=== PATIENT | male | born 1980 | race Caucasian/White ===

== ENCOUNTER 2016-07-31 23:58 | Emergency (ER) | payer MEDICAID ==
[2016-08-01 00:10] VITALS: RESP 16; TEMP 97.9
--- NOTE | 2016-08-01 00:10 | EDPHY ---
H & P Time Seen by Provider: 08/01/16 00:00 HPI/ROS: HPI The patient presents with concern for alcohol intoxication, he is brought in by ambulance. He was found by a concerned bystander, worried that he was on ketamine and having an overdose. He says he has been drinking alcohol tonight and smoking cigarettes. He denies any complaints. REVIEW OF SYSTEMS Constitutional: No fever, no chills. Eyes: No discharge. ENT: No sore throat. Cardiovascular: No chest pain, no palpitations. Respiratory: No cough, no shortness of breath. Gastrointestinal: No abdominal pain, no vomiting. Genitourinary: No hematuria. Musculoskeletal: No back pain. Skin: No rashes. Neurological: No headache. PMHx: Healthy Soc Hx: Homeless, alcohol use, tobacco use PHYSICAL General Appearance: Alert, no distress Eyes: Pupils equal and round no pallor or injection ENT, Mouth: Mucous membranes moist Respiratory: There are no retractions, lungs are clear to auscultation Cardiovascular: Regular rate and rhythm Gastrointestinal: Abdomen is soft and non-tender, no masses, bowel sounds normal Neurological: A&O, moves all extremities Skin: Warm and dry, no rashes Musculoskeletal: Neck is supple non tender Extremities: symmetrical, full range of motion Psychiatric: Patient is oriented X 3, there is no agitation Source: Patient, EMS Exam Limitations: No limitations Constitutional: Initial Vital Signs Temperature (C) 36.6 C 08/01/16 00:00 Heart Rate 74 08/01/16 00:00 Respiratory Rate 16 08/01/16 00:00 Blood Pressure 148/89 H 08/01/16 00:00 O2 Sat (%) 93 08/01/16 00:00 O2 Delivery Mode Room Air O2 (L/minute) 2 Allergies/Adverse Reactions: Unable to Assess Allergy (Unverified 08/01/16 00:06) Home Medications: Medication Instructions Recorded Miscellaneous Medical Supply [NO 1 ea MIS AD 06/13/12 HOME MEDS] Denies 10/14/12 Medical Decision Making ED Course/Re-evaluation: I met the paramedics at the bedside to obtain their report. The patient was monitored in the ER for several hours. He sobered clinically and was able to walk without difficulty. [facility] with [facility]. Differential Diagnosis: This is a 35-year-old man who presents with alcohol intoxication, there was some concern for ketamine ingestion, however the patient denies. He seems intoxicated. He does not have any external signs of trauma. - Data Points Medications Given: Discontinued Medications Sodium Chloride (Ns) 1,000 mls @ 0 mls/hr IV ONCE ONE PRN Reason: Wide Open Stop: 08/01/16 00:18 Last Admin: 08/01/16 00:18 Dose: 1,000 mls Departure - Departure Disposition: Home, Routine, Self-Care Clinical Impression: Alcoholic intoxication Qualifiers: Complication of substance-induced condition: with delirium Qualified Code(s): F10.121 - Alcohol abuse with intoxication delirium Condition: Good Instructions: Alcohol Intoxication (ED) Referrals: [facility] [Outside] - As per Instructions
[2016-08-01] MEDS ORDERED: ONDANSETRON 4 MG/2 ML VIAL ONE (00:12)
[2016-08-01] MEDS ORDERED: NS 1,000 ML IV ONE (00:17)
[2016-08-01 06:51] VITALS: BP 112/76; PULSE 79; O2SAT 97
== END 2016-08-01 06:49 | disposition home or self-care (01) ==
LOC: EDUNIT#
DX: F10.121 Alcohol abuse with intoxication delirium (principal)
CPT/HCPCS: J2405

== ENCOUNTER 2016-08-04 00:29 | Emergency (ER) | payer MEDICAID ==
[2016-08-04 00:39] VITALS: RESP 18; O2SAT 93
--- NOTE | 2016-08-04 03:56 | EDPHY ---
H & P Stated Complaint: bilat foot pain and sore throat Time Seen by Provider: 08/04/16 00:49 HPI/ROS: Chief Complaint: Foot pain, sore throat HPI: 35-year-old homeless male presenting with bilateral foot pain, sore throat and left great toe pain. Patient states he has has sores from blisters on the backs of his heels for the last 2 days. He is concerned about the infected. Also thinks he has an infection in his toenail of his left great toe. He did tried to trim the nail but is not improved. Has not had any pus or discharge from the wound. Patient also states that a sore throat for several days in her swallowed is able swallow. No fevers or chills. No cough. No chest pain or shortness of breath. No nausea or vomiting. ROS: 10 point Review of Systems is negative except as noted in the HPI. PMH: Denies Medications: Denies Allergies: No known drug allergies Social History: No smoking, daily alcohol, denies other drug use, patient is currently homeless Family History: non-contributory Physical Exam: Gen: Awake, Alert, No Distress HEENT: Nose: no rhinorrhea Eyes: PERRLA, EOMI Mouth: Moist mucosa mild pharyngeal erythema without exudate Neck: Supple, no JVD Chest: nontender, lungs clear to auscultation Heart: S1, S2 normal, no murmur Abd: Soft, non-tender, no guarding Back: no CVA tenderness, no midline tenderness Ext: no edema, he has ruptured blisters on the back up bilateral calcanei without significant erythema. There is no discharge. His left great toe there is an ingrown tail nail on the medial aspect. There is mild erythema. There is no purulent discharge Skin: no rash Neuro: CN II-XII intact, Sensation grossly intact, Strength 5/5 in bilateral upper and lower extremities - Personal History Current Tetanus/Diphtheria Vaccine: Yes Current Tetanus Diphtheria and Acellular Pertussis (TDAP): Yes - Medical/Surgical History Hx Asthma: No Hx Chronic Respiratory Disease: No Hx Diabetes: No Hx Cardiac Disease: No Hx Renal Disease: No Hx Cirrhosis: No Hx Alcoholism: Yes Hx HIV/AIDS: No Hx Splenectomy or Spleen Trauma: No Other PMH: etoh - Social History Smoking Status: Current every day smoker Constitutional: Initial Vital Signs Temperature (C) 36.5 C 08/04/16 00:34 Heart Rate 84 08/04/16 00:34 Respiratory Rate 18 08/04/16 00:34 Blood Pressure 135/84 H 08/04/16 00:34 O2 Sat (%) 93 08/04/16 00:34 O2 Delivery Mode Room Air Allergies/Adverse Reactions: No Known Allergies Allergy (Unverified 08/04/16 00:33) Home Medications: Medication Instructions Recorded NK [No Known Home Meds] 08/04/16 Medical Decision Making Procedures: Procedure: Digital nerve block, indication is digit anesthesia for procedure. Patient was prepped with chlorhexidine Skin prep. 0.5% bupivacaine was infiltrated in the medial in lateral aspects for with a dorsal approach at the base of the proximal phalanx with blockage of both dorsal and volar nerves. Total of 1 mL was infiltrated. There were no complications. Procedure was performed by myself. Procedure: ED toenail dissection Indication ingrown toenail, patient was brought to the digital nerve block. Patient had the medial aspect of his left great toenail incised with the scissor to the nail bed base. This was removed without difficulty. There is no purulent discharge. There is a large portion removed. There was no complications. Performed by myself. ED Course/Re-evaluation: Rapid strep is negative. Patient's ingrown toenail has been incised by me. Dressing has been placed. There is no evidence of cellulitis or infection on his foot blisters. Will he has been getting dressings and discharged to follow up with [facility]. - Data Points Laboratory Results: 08/04/16 08/04/16 Unknown 01:00 Group A Strep Screen NEGATIVE (NEGATIVE) Group A Strep DNA Pending Departure - Departure Disposition: Home, Routine, Self-Care Clinical Impression: Ingrown toenail Condition: Good Instructions: Ingrown Nail (ED) Additional Instructions: Follow up with the [facility] in 3-4 days for re-evaluation. Return to the emergency depart for increasing pain, redness, discharge, fever, chills, or any other concerns. Referrals: NONE *PRIMARY CARE P,. [Primary Care Provider] - As per Instructions [facility],. [Clinic] - As per Instructions
[2016-08-04 05:49] VITALS: BP 121/69; PULSE 73; TEMP 98.1
[2016-08-04] MEDS ORDERED: IBUPROFEN 200 MG TAB PO ONE ×2 (06:33→06:34)
== END 2016-08-04 05:51 | disposition home or self-care (01) ==
PROC: 0HBRXZZ Excision of Toe Nail, External Approach (ICD-10-PCS; principal; 2016-08-04)
DX: L60.0 Ingrowing nail (principal); F17.200 Nicotine dependence, unspecified, uncomplicated

== ENCOUNTER 2016-10-11 16:02 | Emergency (ER) | payer MEDICAID ==
[2016-10-11 16:18] VITALS: TEMP 98.1
--- NOTE | 2016-10-11 16:24 | EDPHY ---
H & P Stated Complaint: Found sleeping under tree in park Time Seen by Provider: 10/11/16 16:06 HPI/ROS: Chief Complaint: Alcohol intoxication, decreased level of consciousness HPI: 35-year-old male who was found sleeping on a park intoxicated. Patient is unable to ambulate on their own. Patient brought in by EMS for further evaluation. No obvious signs of trauma. Remainder of history is unobtainable secondary to the patient's intoxication. ROS: Unobtainable secondary to the patient's intoxication PMH: Unknown Medications: Unknown Allergies: Unknown Social History: Positive for alcohol Family History: non-contributory Physical Exam: Gen: Somnolent, responds to painful stimuli, maintaining airway, smells of alcohol and emesis HEENT: Atraumatic Nose: no epistaxis or deformity Eyes: PERRLA, EOMI Mouth: Moist mucosa Neck: Supple, no step-offs or deformity Chest: Atraumatic, lungs clear to auscultation Heart: S1, S2 normal, no murmur Abd: Soft, non-tender, no guarding Back: Atraumatic Ext: no edema, atraumatic Skin: no rash Neuro: Sensation grossly intact, Strength 5/5 in bilateral upper and lower extremities - Personal History Current Tetanus/Diphtheria Vaccine: Unsure Current Tetanus Diphtheria and Acellular Pertussis (TDAP): Unsure - Medical/Surgical History Hx Asthma: No Hx Chronic Respiratory Disease: No Hx Diabetes: No Hx Cardiac Disease: No Hx Renal Disease: No Hx Cirrhosis: No Hx Alcoholism: Yes Hx HIV/AIDS: No Hx Splenectomy or Spleen Trauma: No Other PMH: etoh - Social History Smoking Status: Current every day smoker Constitutional: Initial Vital Signs Temperature (C) 36.7 C 10/11/16 16:04 Heart Rate 78 10/11/16 16:04 Respiratory Rate 14 10/11/16 16:04 Blood Pressure 121/61 H 10/11/16 16:04 O2 Sat (%) 87 L 10/11/16 16:04 O2 Delivery Mode Room Air O2 (L/minute) 4 Allergies/Adverse Reactions: No Known Allergies Allergy (Unverified 08/04/16 00:33) Home Medications: Medication Instructions Recorded NK [No Known Home Meds] 08/04/16 Medical Decision Making ED Course/Re-evaluation: Patient is now awake and appropriate. Ambulating unassisted to the bathroom. No current complaints. Medically cleared for the [facility] - Data Points Laboratory Results: 10/11/16 16:00 Ethyl Alcohol 298 mg/dL H mg/dL (0-10) Departure - Departure Disposition: Home, Routine, Self-Care Clinical Impression: Alcoholic intoxication Condition: Good Instructions: Alcohol Intoxication (ED), Chlordiazepoxide (By mouth) Additional Instructions: Please seek help to decrease your alcohol consumption. Referrals: [facility],. [Clinic] - As per Instructions
[2016-10-11 16:37] LABS: ETHANOL SERUM 298 mg/dL (0-10)
[2016-10-11 19:41] VITALS: BP 120/54; PULSE 80; RESP 12; O2SAT 93
[2016-10-11] MEDS ORDERED: CHLORDIAZEPOXIDE 25MG PREPK#6 BTL TAKEHOME ONE (20:12)
== END 2016-10-11 20:45 | disposition home or self-care (01) ==
LOC: EDUNIT#
DX: F10.129 Alcohol abuse with intoxication, unspecified (principal); F17.200 Nicotine dependence, unspecified, uncomplicated
CPT/HCPCS: G0480

== ENCOUNTER 2016-12-07 18:52 | Emergency (ER) | payer MEDICAID ==
[2016-12-07] MEDS ORDERED: PROPARACAINE 0.5% 15 ML OPHT DROP OP ONE (19:00)
--- NOTE | 2016-12-07 19:01 | EDPHY ---
H & P Time Seen by Provider: 12/07/16 18:54 HPI/ROS: CHIEF COMPLAINT: Foreign body in right eye HISTORY OF PRESENT ILLNESS: The patient is a 36-year-old homeless male, brought in by EMS, presenting with a foreign body in his right eye and multiple abrasions from a fall. The patient states he was walking along the [place] and fell on some rocks on his right side. The patient went to sleep and when he woke up he felt like there was something in his right eye. The patient complains of severe right eye pain. He has multiple abrasions on his right side and complains of right rib pain. He denies head trauma. No neck or back pain. REVIEW OF SYSTEMS: A comprehensive 10 point review of systems is otherwise negative aside from elements mentioned in the history of present illness. Past Medical/Surgical History: Denies. Social History: Homeless Smoking Status: Current every day smoker Physical Exam: General: Agitated, tearful at times, cooperative at other times Lids: I inverted the lid, no proptosis, no periorbital erythema or swelling, no vesicles, no foreign body Conjunctivae: Erythema, no discharge Pupils: equal round and reactive to light EOMI Cornea: Abrasion at 2 O'clock. Anterior chamber: Clear, no hyphema ENT, Mouth: [no oral trauma, no bony tenderness] Neck: [Nontender, full range of motion without pain] Respiratory: [right-sided chest wall tenderness, lungs clear bilaterally] Cardiovascular: [Regular rate and rhythm] Abdomen: [Abdomen is soft and nontender] Skin: [abrasions on the right lateral chest wall and right thigh] Back: [No midline T/L/S tenderness] Extremities: [Pelvis is stable and nontender; no extremity tenderness or deformity range of motion without pain] Neurological: [A&Ox3, normal motor function, normal sensory exam, cranial nerves intact] Psychiatric: [fluctuating affect] Constitutional: Initial Vital Signs Temperature (C) 36.5 C 12/07/16 18:53 Heart Rate 86 12/07/16 18:53 Respiratory Rate 20 12/07/16 18:53 Blood Pressure 124/79 H 12/07/16 18:53 O2 Sat (%) 96 12/07/16 18:53 O2 Delivery Mode Room Air Allergies/Adverse Reactions: No Known Allergies Allergy (Unverified 08/04/16 00:33) Home Medications: Medication Instructions Recorded NK [No Known Home Meds] 08/04/16 Medical Decision Making - Diagnostics Imaging Results: Imaging Impressions Chest X-Ray 12/07/16 19:00 Impression: No acute pulmonary disease. ED Course/Re-evaluation: The patient arrived via EMS complaining of a foreign body in his right eye. I tried to examine the patient's eye but he refuses to open it due to severe pain. Plan for Proparacaine drops and reevaluation. The patient additionally complained of right rib pain. Patient is refusing a chest x-ray. I was able to perform an eye exam using fluorescein. The patient has a left corneal abrasion at 2 O'clock. I will treat this with Tobramycin. Patient is now agreeable to chest x-ray. Chest x-ray is negative. No evidence of pneumothorax or rib fracture. The patient has no other acute complaints. He was encouraged to follow up at [facility]. Patient is safe to be discharged home. Differential Diagnosis: Differential diagnosis includes though it is not limited to fracture, intracranial hemorrhage, pneumothorax, hemothorax, intra-abdominal hemorrhage. - Data Points Medications Given: Discontinued Medications Acetaminophen (Tylenol) 650 mg PO EDNOW ONE Stop: 12/07/16 19:56 Last Admin: 12/07/16 20:16 Dose: 650 mg Proparacaine HCl (Alcaine 0.5%) 1 drops OP EDNOW ONE Stop: 12/07/16 19:01 Last Admin: 12/07/16 19:17 Dose: 1 drop Tobramycin (Tobrex 0.3% Opht Drops Prepack) 1 btl TAKEHOME EDNOW ONE Stop: 12/07/16 20:14 Last Admin: 12/07/16 20:17 Dose: 1 btl Departure - Departure Disposition: Home, Routine, Self-Care Clinical Impression: Corneal abrasion Qualifiers: Encounter type: initial encounter Laterality: left Qualified Code(s): S05.02XA - Injury of conjunctiva and corneal abrasion without foreign body, left eye, initial encounter Chest wall contusion Qualifiers: Encounter type: initial encounter Laterality: right Qualified Code(s): S20.211A - Contusion of right front wall of thorax, initial encounter Condition: Good Instructions: Corneal Abrasion (ED), Chest Wall Pain (ED) Additional Instructions: Use Tobramycin as directed: Put 2 drops of Tobramycin in in the left eye every 4 hours while awake for the next 5 days. Take Tylenol 650 mg every 4 hours as needed for pain. Followup with [facility] if eye symptoms persist on Thursday. The [facility] has walk-in appointments for the homeless at the following days/locations. No appointment is needed. Thursday 8-10 am @ [facility] 11 AM-1 PM @ [facility] Thursday 8-10:30 AM @ [facility] Thursday 8-10 AM @ [facility] 2-4 PM @ [facility] Thursday 8-10 AM @ [facility] Referrals: [facility],. [Clinic] - As per Instructions Report Scribed for: Naheed Andrea Report Scribed by: Nubia Majano Date of Report: 12/07/16 Time of Report: 19:01 Physician Review and Approval Statement: 12/07/16 19:01 Portions of this note were transcribed by a medical records receptionist. I personally performed the history, physical exam, and medical decision-making; and confirmed the accuracy of the information in the transcribed note.
[2016-12-07 19:03] VITALS: TEMP 97.7
[2016-12-07] MEDS ORDERED: FLUORESCEIN SODIUM 1 MG STRIP OP ONE (19:15)
[2016-12-07] MEDS ORDERED: ACETAMINOPHEN 325 MG TAB PO ONE (19:55)
[2016-12-07] MEDS ORDERED: TOBRAMYCIN 0.3% SOLN PREPACK OPHT.BTL TAKEHOME ONE (20:13)
[2016-12-07 20:35] VITALS: BP 133/77; PULSE 85; RESP 16; O2SAT 95
== END 2016-12-07 20:33 | disposition home or self-care (01) ==
LOC: EDUNIT#
DX: S20.211A Contusion of right front wall of thorax, initial encounter (principal); S05.02XA Injury of conjunctiva and corneal abrasion without foreign body, left eye, initial encounter; F17.200 Nicotine dependence, unspecified, uncomplicated; W18.39XA Other fall on same level, initial encounter; Y99.8 Other external cause status

== ENCOUNTER 2017-01-01 13:35 | Emergency (ER) | payer MEDICAID ==
--- NOTE | 2017-01-01 13:39 | EDPHY ---
H & P Time Seen by Provider: 01/01/17 13:39 HPI/ROS: CHIEF COMPLAINT: Medical clearance HISTORY OF PRESENT ILLNESS: The patient is brought in by police for medical clearance for senior care. The patient has a warrant for his arrest. The patient reportedly ran from police. There was no history of fall or trauma. The patient was noted to have alcohol on his breath. In the emergency department, the patient does not want to provide any additional history. The patient states that he does not want to be touch were examined. The patient does appear articulate and competent. The patient denies any acute complaints. REVIEW OF SYSTEMS: A comprehensive 10 point review of systems is otherwise negative aside from elements mentioned in the history of present illness. Source: Patient Exam Limitations: No limitations - Medical/Surgical History Hx Asthma: No Hx Chronic Respiratory Disease: No Hx Diabetes: No Hx Cardiac Disease: No Hx Renal Disease: No Hx Cirrhosis: No Hx Alcoholism: Yes Hx HIV/AIDS: No Hx Splenectomy or Spleen Trauma: No Other PMH: etoh - Social History Smoking Status: Current every day smoker - Physical Exam Exam: General Appearance: Alert, no distress Eyes: Pupils equal and round no pallor or injection ENT, Mouth: Mucous membranes moist Respiratory: No retractions Neurological: Fluent speech, no gross motor deficits observed Skin: Warm and dry, no rashes Psychiatric: Patient is oriented X 3, there is no agitation Allergies/Adverse Reactions: No Known Allergies Allergy (Verified 01/01/17 13:39) Home Medications: Medication Instructions Recorded NK [No Known Home Meds] 08/04/16 Unobtainable 12/20/16 Medical Decision Making ED Course/Re-evaluation: The patient presents to the ED for medical clearance. The patient is refusing to be examined physically. The patient's vital signs are stable. He has no obvious trauma noted on exam. The patient appears to be a competent decision maker. The patient has been deemed competent to refuse a physical exam. The patient will be released to the custody of police. Departure - Departure Disposition: Home, Routine, Self-Care Clinical Impression: Medical clearance for incarceration Condition: Good Instructions: Alcohol Intoxication (ED) Referrals: NONE *PRIMARY CARE P,. [Primary Care Provider] - As per Instructions
[2017-01-01 13:41] VITALS: BP 115/53; PULSE 105; TEMP 97.9; O2SAT 94
== END 2017-01-01 13:50 | disposition home or self-care (01) ==
LOC: EDUNIT#
DX: Z02.89 Encounter for other administrative examinations (principal); F17.200 Nicotine dependence, unspecified, uncomplicated

== ENCOUNTER 2017-04-08 16:17 | Emergency (ER) | payer MEDICAID ==
[2017-04-08 21:00] VITALS: PULSE 77; RESP 16
[2017-04-08] MEDS ORDERED: CHLORDIAZEPOXIDE 25MG PREPK#6 BTL TAKEHOME ONE ×2 (22:56→22:59)
--- NOTE | 2017-04-08 22:58 | EDPHY ---
H & P Stated Complaint: ETOH - Personal History Current Tetanus/Diphtheria Vaccine: Unsure - Medical/Surgical History Hx Asthma: No Hx Chronic Respiratory Disease: No Hx Diabetes: No Hx Cardiac Disease: No Hx Renal Disease: No Hx Cirrhosis: No Hx Alcoholism: Yes Hx HIV/AIDS: No Hx Splenectomy or Spleen Trauma: No Other PMH: etoh - Social History Smoking Status: Current every day smoker HPI/ROS: Chief complaint: Alcohol intoxication History of present illness: This is a 36-year-old male brought to the emergency department by EMS and police for evaluation of alcohol intoxication. Apparently he was found outside a grocery store drinking alcohol. He was too drunk to go to the [facility] and was brought here on an [facility] cold. On my evaluation he appears intoxicated with a strong odor of alcohol. Not answering questions. Review of systems: Unable to obtain secondary to level of consciousness (Chacho Ni) - Physical Exam Exam: General Appearance: Alert to verbal stimuli Eyes: PERRLA Respiratory: Lungs clear to auscultation bilaterally Cardiac: Regular rate and rhythm. Gastrointestinal: Soft, nondistended. Bowel sounds normal. Neurological: Alert to verbal stimuli. Moving all extremities. Skin: A head-to-toe exam does not reveal acute lesions. Musculoskeletal: Head is without crepitus or bony deformity, spine is without crepitus or bony deformity, chest without crepitus or subcutaneous air, purposeful moving all extremities. (Chacho Ni) Constitutional: Initial Vital Signs Temperature (C) 36.3 C 04/08/17 16:29 Heart Rate 78 04/08/17 16:29 Respiratory Rate 18 04/08/17 16:29 Blood Pressure 131/78 H 04/08/17 16:29 O2 Sat (%) 96 04/08/17 16:29 O2 Delivery Mode Room Air Allergies/Adverse Reactions: No Known Allergies Allergy (Verified 04/08/17 16:34) Home Medications: Medication Instructions Recorded NK [No Known Home Meds] 08/04/16 Unobtainable 12/20/16 Medical Decision Making ED Course/Re-evaluation: Patient seen under the supervision of my secondary supervising physician Dr. Lianet Jean Baptiste. Patient is brought to the emergency department on an [facility] hold. Strong odor of alcohol on his breath. He has been observed for almost 7 hr. He is sobering up well. Awake alert and answering questions. Admits to drinking alcohol. Has no acute complaints. Would like to seek care, would like to go to the [facility]. He is sent to the [facility] with police and a Librium prepack. (Chacho Ni) Differential Diagnosis: Included but not limited to alcohol intoxication, alcohol withdrawal, polysubstance abuse (Chacho Ni) Other Provider: The patient was evaluated and managed by the Physician [employer]. I discussed the patient's presentation and course with the physician visitor services assistant and agree with the evaluation. My co-signature indicates that I have reviewed this chart and I agree with the findings and plan of care as documented. I am the secondary supervising physician. (Lianet Jean Baptiste) - Data Points Medications Given: Discontinued Medications Chlordiazepoxide (Librium 25 Mg Prepack#6) 1 btl TAKEHOME EDNOW ONE Stop: 04/08/17 23:00 Last Admin: 04/08/17 23:01 Dose: 1 btl Departure - Departure Disposition: Law Enforcement/Court/Senior Living Clinical Impression: Alcoholic intoxication Condition: Good Instructions: Chlordiazepoxide/Clidinium (By mouth), Abuse of Alcohol (ED) Additional Instructions: Follow-up with a primary doctor for recheck Drink plenty of fluids to stay hydrated Avoid alcohol If symptoms worsen or new symptoms develop return to the emergency room for recheck Referrals: NONE *PRIMARY CARE P,. [Primary Care Provider] - As per Instructions [facility],. [Clinic] - As per Instructions
[2017-04-08 23:19] VITALS: BP 129/89; TEMP 98.2; O2SAT 97
== END 2017-04-08 23:16 ==
LOC: EDUNIT#
DX: F10.129 Alcohol abuse with intoxication, unspecified (principal); F17.200 Nicotine dependence, unspecified, uncomplicated

== ENCOUNTER 2017-04-12 01:46 | Emergency (ER) | payer MEDICAID ==
--- NOTE | 2017-04-12 02:12 | EDPHY ---
H & P Stated Complaint: ETOH, FOUND IN [address] OF [facility] ON [facility] [address] Time Seen by Provider: 04/12/17 01:51 HPI/ROS: Chief Complaint: Alcohol intoxication HPI: 36-year-old male who was found laying in a doorway intoxicated. Patient passed out after drinking. EMS was called. Is unable to ambulate on their own. Patient brought in by EMS for further evaluation. No obvious signs of trauma per EMS. Remainder of history is unobtainable secondary to the patient' s intoxication. Patient is now awake Alert. ROS: 10 point Review of Systems is negative except as noted in the HPI. Social History: Homeless, heavy daily alcohol Family History: non-contributory Physical Exam: Gen: S awake, alert, slurred speech, smells of alcohol HEENT: Atraumatic Nose: no epistaxis or deformity Eyes: PERRLA, EOMI Mouth: Moist mucosa Neck: Supple, no step-offs or deformity Chest: Atraumatic, lungs clear to auscultation Heart: S1, S2 normal, no murmur Abd: Soft, non-tender, no guarding Back: Atraumatic Ext: no edema, atraumatic Skin: no rash Neuro: Sensation grossly intact, Strength 5/5 in bilateral upper and lower extremities - Personal History Current Tetanus/Diphtheria Vaccine: Unsure - Medical/Surgical History Hx Asthma: No Hx Chronic Respiratory Disease: No Hx Diabetes: No Hx Cardiac Disease: No Hx Renal Disease: No Hx Cirrhosis: No Hx Alcoholism: Yes Hx HIV/AIDS: No Hx Splenectomy or Spleen Trauma: No Other PMH: etoh - Social History Smoking Status: Current every day smoker Constitutional: Initial Vital Signs Temperature (C) 36.8 C 04/12/17 01:46 Heart Rate 88 04/12/17 01:46 Respiratory Rate 18 04/12/17 01:46 Blood Pressure 118/86 H 04/12/17 01:46 O2 Sat (%) 97 04/12/17 01:46 O2 Delivery Mode Room Air Allergies/Adverse Reactions: No Known Allergies Allergy (Verified 04/08/17 16:34) Home Medications: Medication Instructions Recorded NK [No Known Home Meds] 08/04/16 Unobtainable 12/20/16 Departure - Departure Disposition: Home, Routine, Self-Care Clinical Impression: Alcoholic intoxication Condition: Good Instructions: Alcohol Intoxication (ED) Referrals: [facility],. [Clinic] - As per Instructions
[2017-04-12 02:23] VITALS: BP 121/74; PULSE 84; RESP 16; TEMP 97.9; O2SAT 96
[2017-04-12] MEDS ORDERED: CHLORDIAZEPOXIDE 25MG PREPK#6 BTL TAKEHOME ONE (02:27)
== END 2017-04-12 02:22 | disposition home or self-care (01) ==
LOC: EDUNIT#
DX: F10.129 Alcohol abuse with intoxication, unspecified (principal); F17.200 Nicotine dependence, unspecified, uncomplicated

== ENCOUNTER 2017-05-28 14:13 | Emergency (ER) | payer MEDICAID ==
[2017-05-28 14:16] VITALS: BP 137/88; PULSE 96; RESP 18; TEMP 98.2; O2SAT 98
--- NOTE | 2017-05-28 14:22 | EDPHY ---
H & P Stated Complaint: ETOH dropped off by PD Time Seen by Provider: 05/28/17 14:21 HPI/ROS: HPI: This is a 36-year-old male who presents with Chief Complaint: Alcohol intoxication Location:body Quality: Alcohol intoxication Duration: Today Signs and Symptoms: No suicidal ideation, no homicidal ideation, no hallucinations, no chest pain, no shortness of breath, no abdominal pain, no nausea, no vomiting Timing: Acute on chronic Severity: Moderate Context: Patient has a history of alcoholism well-known to the emergency room is brought in by police as a received several calls today for patient being intoxicated in front of business's near [address] [place] [address]. Upon arrival, patient became verbally and physically combative with police. He reported that he did not want to leave the vicinity. He will not be cooperative with exam to me. She will not answer how much alcohol he has drank today or what type of alcohol he has drank. He demands "some food." Modifying Factors: None Comment: ROS: Limited due to intoxication MEDICAL/SURGICAL/SOCIAL HISTORY: Medical history: Daily alcohol abuse. Surgical history: Denies Social history: Tobacco user. Homeless. CONSTITUTIONAL: Intoxicated, uncooperative, smells heavily of alcohol adult male, awake and alert, no obvious distress HEENT: Atraumatic and normocephalic, PERRL, EOMI. Tympanic membranes clear. Oropharynx clear, no exudate and moist pink mucosa. Airway patent. No lymphadenopathy. No meningismus. Cardiovascular: Normal S1/S2, regular rate, regular rhythm, without murmur rub or gallop. PULMONARY/CHEST: Symmetrical and nontender. Clear to auscultation bilaterally. Good air movement. No accessory muscle usage. ABDOMEN: Soft, nondistended, nontender, no rebound, no guarding, no peritoneal signs, no masses or organomegaly. No CVAT. EXTREMITIES: 2/2 pulses, strength 5/5, no deformities, no clubbing, no cyanosis or edema. NEUROLOGICAL: no focal neuro deficits. GCS 15. SKIN: Warm and dry, no erythema. no rash. Good capillary refill. Source: Patient, Police, RN/MD Exam Limitations: Intoxication - Personal History Current Tetanus/Diphtheria Vaccine: No Current Tetanus Diphtheria and Acellular Pertussis (TDAP): No - Medical/Surgical History Hx Asthma: No Hx Chronic Respiratory Disease: No Hx Diabetes: No Hx Cardiac Disease: No Hx Renal Disease: No Hx Cirrhosis: No Hx Alcoholism: Yes Hx HIV/AIDS: No Hx Splenectomy or Spleen Trauma: No Other PMH: etoh - Social History Smoking Status: Current every day smoker Constitutional: Initial Vital Signs Temperature (C) 36.8 C 05/28/17 14:14 Heart Rate 96 05/28/17 14:14 Respiratory Rate 18 05/28/17 14:14 Blood Pressure 137/88 H 05/28/17 14:14 O2 Sat (%) 98 05/28/17 14:14 O2 Delivery Mode Room Air Allergies/Adverse Reactions: No Known Allergies Allergy (Verified 04/08/17 16:34) Home Medications: Medication Instructions Recorded NK [No Known Home Meds] 08/04/16 Medical Decision Making ED Course/Re-evaluation: 1400: Does not meet M1 hold or detainer criteria. Patient is clearly intoxicated and uncooperative, IM Ativan 2 mg ordered. 1452: Reassessed patient. Able to get up out of the ER stretcher on his own and ambulate to the bathroom without any ataxia. Patient does not want to go to the [facility] for detox as he is not interested in alcohol cessation. Patient was discharged. This patient was seen under the supervision of my secondary supervising physician. I evaluated care for this patient independently. Differential Diagnosis: Differential diagnosis includes but is not limited to alcohol intoxication. Departure - Departure Disposition: Home, Routine, Self-Care Clinical Impression: Alcohol intoxication Qualifiers: Complication of substance-induced condition: uncomplicated Qualified Code(s): F10.920 - Alcohol use, unspecified with intoxication, uncomplicated Condition: Good Instructions: Alcohol Intoxication (ED) Additional Instructions: Please refrain from drinking alcohol excessively. Referrals: [facility],. [Clinic] - As per Instructions
[2017-05-28] MEDS ORDERED: LORazepam 2 MG/ML INJ IM ONE (14:34)
== END 2017-05-28 15:16 | disposition home or self-care (01) ==
LOC: EEVIPCON 14:13
DX: F10.920 Alcohol use, unspecified with intoxication, uncomplicated (principal); F17.200 Nicotine dependence, unspecified, uncomplicated
CPT/HCPCS: J2060

== ENCOUNTER 2017-06-24 01:07 | Emergency (ER) | payer MEDICAID ==
[2017-06-24 01:29] VITALS: RESP 18; TEMP 97.5
--- NOTE | 2017-06-24 05:58 | EDPHY ---
H & P Stated Complaint: etoh Time Seen by Provider: 06/24/17 02:58 HPI/ROS: CHIEF COMPLAINT: Alcohol intoxication HISTORY OF PRESENT ILLNESS: Patient was found by bystanders to be severely intoxicated and therefore they called EMS system. Patient denies any injuries , denies loss of consciousness, denies any recent trauma. Patient denies coingestion, patient denies suicidal or homicidal behavior. REVIEW OF SYSTEMS: Constitutional: No fever, no chills. Eyes:No visual changes. ENT: No sore throat. Respiratory: No cough, no shortness of breath. Cardiac: No chest pain. Gastrointestinal: No abdominal pain, vomiting or diarrhea. Genitourinary: No hematuria. Musculoskeletal: No back pain. Skin: No rashes. Neurological: No headache. PAST MEDICAL HISTORY: None PAST SURGICAL HISTORY: None SOCIAL HISTORY: Student, single, denies tobacco or drug use, drinks alcohol occasionally PHYSICAL EXAM: General Appearance: Alert, well hydrated, appropriate, and non-toxic appearing. Head: Atraumatic without scalp tenderness or obvious injury Eyes: Pupils equal, round, reactive to light, no injection. Ears: Clear bilaterally, no perforation, normal landmarks Nose: Atraumatic, no rhinorrhea, clear. Throat: mucus membranes moist. Neck: Supple, non-tender, no lymphadenopathy. Respiratory: No retractions, no distress, no wheezes, and no accessory muscle use. Lungs are clear to auscultation bilaterally. Cardiovascular: Regular rate and rhythm, no murmurs, rubs, or gallops. Gastrointestinal: Abdomen is soft, non-tender, non-distended Musculoskeletal: Normal active ROM of all extremities, atraumatic. Neurological: Alert, appropriate, and interactive. Moves all extremities equally. Skin: No rashes, good turgor, no nodules on palpation. MEDICAL DECISION MAKING: I serially examined this patient since the patient's arrival here in the emergency department. The patient continues to become more and more sober with each examination. I serially questioned the patient and the patient's story given initially has not changed. The patient still denies any trauma, any head injury, and any illicit drug use. At this point, the patient is walking the department freely and is clinically sober. We're discharging the patient to home in stable condition. Source: Patient, EMS Exam Limitations: Intoxication - Personal History Current Tetanus/Diphtheria Vaccine: Yes Current Tetanus Diphtheria and Acellular Pertussis (TDAP): Yes - Medical/Surgical History Hx Asthma: No Hx Chronic Respiratory Disease: No Hx Diabetes: No Hx Cardiac Disease: No Hx Renal Disease: No Hx Cirrhosis: No Hx Alcoholism: Yes Hx HIV/AIDS: No Hx Splenectomy or Spleen Trauma: No Other PMH: unobtainable - Social History Smoking Status: Current every day smoker Constitutional: Initial Vital Signs Temperature (C) 36.4 C 06/24/17 01:10 Heart Rate 88 06/24/17 01:10 Respiratory Rate 18 06/24/17 01:10 Blood Pressure 124/95 H 06/24/17 01:10 O2 Sat (%) 93 06/24/17 01:10 O2 Delivery Mode Room Air Allergies/Adverse Reactions: No Known Allergies Allergy (Verified 04/08/17 16:34) Home Medications: Medication Instructions Recorded NK [No Known Home Meds] 08/04/16 Departure - Departure Disposition: Home, Routine, Self-Care Clinical Impression: Alcoholic intoxication Qualifiers: Complication of substance-induced condition: with delirium Qualified Code(s): F10.921 - Alcohol use, unspecified with intoxication delirium Condition: Good Instructions: Alcohol Intoxication (ED) Additional Instructions: Please return to the emergency department if your worse in any way. Referrals: [facility],. [Clinic] - As per Instructions
[2017-06-24 06:16] VITALS: BP 120/80; PULSE 79; O2SAT 97
== END 2017-06-24 06:16 | disposition home or self-care (01) ==
DX: F10.921 Alcohol use, unspecified with intoxication delirium (principal); F17.200 Nicotine dependence, unspecified, uncomplicated

== ENCOUNTER 2017-06-26 12:42 | Emergency (ER) | payer MEDICAID ==
--- NOTE | 2017-06-26 12:47 | EDPHY ---
H & P Time Seen by Provider: 06/26/17 12:44 HPI/ROS: CHIEF COMPLAINT: "Let me go to sleep asshole" HISTORY OF PRESENT ILLNESS: 36-year-old homeless male history of alcohol abuse, polysubstance abuse, arrives via ambulance after he was found sleeping in a parking garage. He was dry. Currently snowing outside. He is upset that he was brought to the emergency department, states that he is upset that he was woken up. He has no complaints of pain or discomfort effort. No chest pain. No abdominal pain. No trauma no fall. REVIEW OF SYSTEMS: A ten point review of systems was performed and is negative with the exception of the items mentioned in the HPI PAST MEDICAL & SURGICAL HISTORY: No pertinent medical or surgical history SOCIAL HISTORY: History of alcohol abuse. Homelessness. PHYSICAL EXAM (Prior to examination, patient consented to physical exam, hands were washed and my usual and customary physical exam procedures followed) 1) GENERAL: Sleeping, easily woken, Poorly kept, foul smelling. Yelling, cursing, insulting staff and myself. Clothing is dry 2) HEAD: Normocephalic, atraumatic 3) HEENT: Pupils equal, round, reactive to light bilaterally. Sclera anicteric. 4) NECK: Full range of motion, no meningeal signs. 5) LUNGS: Clear auscultation bilaterally, no wheezes, no rhonchi, no retractions. 6) HEART: Regular rate and rhythm, no murmur, no heave, no gallop. 7) ABDOMEN: No guarding, no rebound, no focal tenderness, 8) MUSCULOSKELETAL: Moving all extremities, no focal areas of tenderness, no obvious trauma. No peripheral edema or discoloration. Specifically no evidence of trench foot bilaterally. No evidence of frostbite or akbar nip to his feet. 9) BACK: No obvious trauma, no visual or palpable abnormality. 10) SKIN: No rash, no petechiae. 11) Psychiatric: Patient is oriented X 3, he is agitated DIFFERENTIAL DIAGNOSIS: In no particular order including but limited to malingering, acute alcohol abuse, polysubstance abuse - Medical/Surgical History Hx Asthma: No Hx Chronic Respiratory Disease: No Hx Diabetes: No Hx Cardiac Disease: No Hx Renal Disease: No Hx Cirrhosis: No Hx Alcoholism: Yes Hx HIV/AIDS: No Hx Splenectomy or Spleen Trauma: No Other PMH: unobtainable - Social History Smoking Status: Current every day smoker Constitutional: Initial Vital Signs Temperature (C) 36.4 C 06/26/17 12:44 Heart Rate 79 06/26/17 12:44 Respiratory Rate 18 06/26/17 12:44 Blood Pressure 132/68 H 06/26/17 12:44 O2 Sat (%) 96 06/26/17 12:44 O2 Delivery Mode Room Air Allergies/Adverse Reactions: No Known Allergies Allergy (Verified 04/08/17 16:34) Home Medications: Medication Instructions Recorded NK [No Known Home Meds] 08/04/16 Medical Decision Making ED Course/Re-evaluation: 12:50 p.m.: Patient is clinically sober. He does not [facility] to [facility] to [facility]. He would like to sleep in the ER for few more hours until it stops snowing. I empathized with his living situation. He has no signs of trauma. I do not think that diagnostic studies or imaging are indicated. He is verbally abusive to emergency department staff and myself. He is requesting we provide him with a flashlight . Plan will be discharge from the emergency department. Care of patient under supervision of secondary supervising physician Dr Cornejo. Departure - Departure Disposition: Home, Routine, Self-Care Clinical Impression: Alcohol abuse, Homeless Condition: Good Instructions: Abuse of Alcohol (ED) Additional Instructions: Please consider long-term alcohol sobriety. Do not use drugs Referrals: [facility],. [Clinic] - 1 day without fail
[2017-06-26 12:51] VITALS: BP 132/68
== END 2017-06-26 13:15 | disposition home or self-care (01) ==
DX: F10.129 Alcohol abuse with intoxication, unspecified (principal); F17.200 Nicotine dependence, unspecified, uncomplicated; Z59.0 Homelessness

== ENCOUNTER 2017-07-14 14:47 | Emergency (ER) | payer MEDICAID ==
[2017-07-14] MEDS ORDERED: NS 1,000 ML IV ONE (14:51)
--- NOTE | 2017-07-14 14:56 | EDPHY ---
H & P Source: Patient, EMS Exam Limitations: Intoxication - Medical/Surgical History Hx Asthma: No Hx Chronic Respiratory Disease: No Hx Diabetes: No Hx Cardiac Disease: No Hx Renal Disease: No Hx Cirrhosis: No Hx Alcoholism: Yes Hx HIV/AIDS: No Hx Splenectomy or Spleen Trauma: No Other PMH: unobtainable - Family History Significant Family History: No pertinent family hx - Social History Smoking Status: Current every day smoker Alcohol Use: Heavy Time Seen by Provider: 07/14/17 14:50 HPI/ROS: CHIEF COMPLAINT: Toxication HISTORY OF PRESENT ILLNESS: The patient is a homeless alcoholic man who was found in the bathroom at the [employer] presumably intoxicated. He was surrounded by empty bottles of [employer] pure almond extract. The patient is not cooperative with exam. Any questions asked he responds "leave me the fuck alone". No signs of injury. REVIEW OF SYSTEMS: Unable to obtain secondary to condition EXAM: GENERAL: Combative, disheveled, no acute distress HEAD: Atraumatic, normocephalic. EYES: Pupils equal round and reactive to light, extraocular movements intact, sclera anicteric, conjunctiva are normal. ENT: oropharynx clear without exudates. Moist mucous membranes. NECK: Normal range of motion. LUNGS: Breath sounds clear to auscultation bilaterally and equal. No wheezes rales or rhonchi. HEART: Regular rate and rhythm without murmurs, rubs or gallops. ABDOMEN: Soft, nontender, normoactive bowel sounds. No guarding, no rebound. No masses appreciated. BACK: No CVA tenderness, no spinal tenderness, step-offs or deformities EXTREMITIES: Normal range of motion, no pitting or edema. No clubbing or cyanosis. Mild edema lower legs NEUROLOGICAL: Cranial nerves II through XII grossly intact. slurred speech, normal gait. 5/5 strength, normal movement in all extremities, normal sensation PSYCH: Normal mood, normal affect. SKIN: Warm, dry, normal turgor, no visible rashes or lesions. (Armond Powell) Constitutional: Initial Vital Signs Temperature (C) 36.4 C 07/14/17 14:47 Heart Rate 92 07/14/17 14:47 Respiratory Rate 16 07/14/17 14:47 Blood Pressure 138/78 H 07/14/17 14:47 O2 Sat (%) 98 07/14/17 14:47 O2 Delivery Mode Room Air Allergies/Adverse Reactions: No Known Allergies Allergy (Verified 04/08/17 16:34) Home Medications: Medication Instructions Recorded NK [No Known Home Meds] 08/04/16 Medical Decision Making ED Course/Re-evaluation: I spoke with poison control his case number is [id number]. They recommend only typical treatment for alcohol intoxication. 3:00 p.m. Care transferred to Dr. Lianet Jean Baptiste. (Armond Powell) Differential Diagnosis: Partial list of the Differential diagnosis considered include but were not limited to; intoxication, polysubstance abuse and although unlikely based on the history and physical exam, I also considered head injury, infection. ( Armond Powell) Other Provider: I assumed care of this patient at 3:[address] Armond Powell, pending sober re-evaluation. Patient sobered appropriately. He began to become verbally aggressive to other individuals in the emergency department. I re-examination he is ambulatory without difficulty, has a grossly nonfocal neurologic exam, moving all extremities x4, alert, oriented, no nystagmus. He was cleared to go to group home. ( Lianet Jean Baptiste) - Data Points Laboratory Results: Laboratory Results 07/14/17 15:12 07/14/17 15:12 Medications Given: Discontinued Medications Sodium Chloride (Ns) 1,000 mls @ 0 mls/hr IV EDNOW ONE; Wide Open PRN Reason: Protocol Stop: 07/14/17 14:52 Last Admin: 07/14/17 15:22 Dose: 1,000 mls Departure - Departure Disposition: Home, Routine, Self-Care Clinical Impression: Alcoholic intoxication Qualifiers: Complication of substance-induced condition: uncomplicated Qualified Code(s): F10.920 - Alcohol use, unspecified with intoxication, uncomplicated Condition: Fair Instructions: Alcohol Intoxication (ED), Abuse of Alcohol (ED) Additional Instructions: Stop drinking alcohol in excessive quantities. Referrals: Patient,NotPresent [Unknown] - As per Instructions
[2017-07-14 15:21] LABS: PLATELET COUNT 276 10^3/uL (150-400)
[2017-07-14 18:06] VITALS: BP 134/73
== END 2017-07-14 18:10 | disposition home or self-care (01) ==
LOC: EDUNIT#
DX: F10.920 Alcohol use, unspecified with intoxication, uncomplicated (principal); E86.9 Volume depletion, unspecified; F17.200 Nicotine dependence, unspecified, uncomplicated
CPT/HCPCS: G0480

== ENCOUNTER 2017-11-07 | Emergency (ER) | payer MEDICAID, OTHER | END 2017-11-07 14:03 | disposition home or self-care (01) | DX: F15.129 Other stimulant abuse with intoxication, unspecified (principal) ==

== ENCOUNTER 2017-12-26 08:39 | Emergency (ER) | payer MEDICAID, OTHER ==
--- NOTE | 2017-12-26 08:41 | EDPHY ---
H & P Time Seen by Provider: 12/26/17 08:38 - Medical/Surgical History Hx Asthma: No Hx Chronic Respiratory Disease: No Hx Diabetes: No Hx Cardiac Disease: No Hx Renal Disease: No Hx Cirrhosis: No Hx Alcoholism: Yes Hx HIV/AIDS: No Hx Splenectomy or Spleen Trauma: No Other PMH: Meth & bath salt use - Social History Smoking Status: Current every day smoker Constitutional: Initial Vital Signs Temperature (C) 36.5 C 12/26/17 08:39 Heart Rate 76 12/26/17 08:39 Respiratory Rate 16 12/26/17 08:39 Blood Pressure 137/82 H 12/26/17 08:39 O2 Sat (%) 96 12/26/17 08:39 O2 Delivery Mode Room Air Allergies/Adverse Reactions: No Known Allergies Allergy (Verified 10/09/17 05:36) Home Medications: Medication Instructions Recorded NK [No Known Home Meds] 08/04/16 Medical Decision Making ED Course/Re-evaluation: CHIEF COMPLAINT: Spiders on his clothing HISTORY OF PRESENT ILLNESS: The patient is a 37 y/o male with 9 prior visits to this department this year primarily for alcohol intoxication arriving via EMS complaining of spiders on his clothing and then feeling cold after taking all his clothing off. He told EMS he slept outside under a tree and woke up to find spiders on his clothing. After ripping off his clothes he felt cold and called 911. EMS found him walking on scene. A bystander gave him clothing prior to transport here. REVIEW OF SYSTEMS: A comprehensive 10 system review of systems is otherwise negative aside from elements mentioned in the history of present illness and medical decision making. PHYSICAL EXAM: HR, BP, O2 Sat, RR. Temp noted General Appearance: Alert, well hydrated, appropriate, and non-toxic appearing. Head: Atraumatic without scalp tenderness or obvious injury Eyes: Pupils equal, round, reactive to light and accommodation, EOMI, no trauma , no injection. Nose: Atraumatic, no rhinorrhea, clear. Throat: Mucus membranes moist. Neck: Supple. Respiratory: No distress. Cardiovascular: Good capillary refill all extremities. Gastrointestinal: Abdomen is soft, non-tender, non-distended, no masses, no rebound, no guarding, no peritoneal signs. Musculoskeletal: Normal active ROM of all extremities, atraumatic. Neurological: Alert, appropriate, and interactive. Nonfocal. Normal gait. Skin: No rashes, good turgor, no nodules on palpation. No signs of spider bites. PAST MEDICAL HISTORY: Alcohol abuse, methamphetamine abuse PAST SURGICAL HISTORY: Noncontributory SOCIAL HISTORY: Homeless, substance abuse Prior medical records reviewed including ED visit 11/07/17 for similar complaint while using methamphetamine. DIFFERENTIAL DIAGNOSIS: The differential diagnosis for the patient's presentation included but was not limited to malingering, cold after taking clothes off, intoxicants, rash, insect bite. MEDICAL DECISION MAKING: This is a 37 y/o male well-known to this department who presents complaining of being cold after taking his clothes off outside after reporting there were spiders crawling on him. A bystander gave him clothing and he is no longer cold. His exam is unremarkable. Behavior consistent with malingering. He will be discharged with outpatient resources. Departure - Departure Disposition: Home, Routine, Self-Care Clinical Impression: Malingering Instructions: Abuse of Alcohol (ED) Additional Instructions: Follow up with your primary care provider as needed. Referrals: [facility],. [Clinic] - As per Instructions Report Scribed for: Travis Mays Report Scribed by: Anne Gtz Date of Report: 12/26/17 Time of Report: 08:53
[2017-12-26 08:47] VITALS: BP 137/82
== END 2017-12-26 08:52 | disposition home or self-care (01) ==
LOC: EDUNIT#
DX: Z76.5 Malingerer [conscious simulation] (principal); F17.200 Nicotine dependence, unspecified, uncomplicated

== ENCOUNTER 2017-12-26 23:30 | Emergency (ER) | payer MEDICAID ==
[2017-12-26 23:55] LABS: PLATELET COUNT 251 10^3/uL (150-400)
[2017-12-26] MEDS ORDERED: TDAP ADULT 0.5 ML INJ (BOOSTRIX) IM ONE (23:58)
[2017-12-27] MEDS ORDERED: CEPHALEXIN 500 MG CAP PO SCH
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
[2017-12-27 05:30] VITALS: BP 116/70
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
== END 2017-12-27 05:28 | disposition home or self-care (01) ==
LOC: EDUNIT#
PROC: 0HQCXZZ Repair Left Upper Arm Skin, External Approach (ICD-10-PCS; principal; 2017-12-26)
DX: S41.112A Laceration without foreign body of left upper arm, initial encounter (principal); F15.10 Other stimulant abuse, uncomplicated; F17.200 Nicotine dependence, unspecified, uncomplicated; Z23 Encounter for immunization; W19.XXXA Unspecified fall, initial encounter; Y92.9 Unspecified place or not applicable; Y93.9 Activity, unspecified; Y99.9 Unspecified external cause status
CPT/HCPCS: 80305; 96374; G0480; J0690

== ENCOUNTER 2017-12-28 16:43 | Emergency (ER) | payer MEDICAID ==
[2017-12-28 16:53] VITALS: BP 150/86
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
--- NOTE | 2017-12-28 17:57 | ASMTCMCOM ---
CM Note CM Note Notes: Patient with long history of substance abuse presents to ER via EMS and placed on ARC hold, however I have contacted Cee at [facility] (withdrawal management) and patient is currently on a "do not admit list". Cee confirms this list is updated frequently and is up to date for this patient. Patient will remain in the ER until he is sober enough to be discharged. [place] [facility] and [facility] officer aware of warming [facility] hours and address for this evening Date Signed: 12/28/2017 05:56 PM Electronically Signed By:Anabelle Clark RN
== END 2017-12-28 20:46 ==
LOC: EDUNIT#
DX: F10.920 Alcohol use, unspecified with intoxication, uncomplicated (principal); F17.200 Nicotine dependence, unspecified, uncomplicated

== ENCOUNTER 2018-01-09 22:54 | Emergency (ER) | payer MEDICAID ==
--- NOTE | 2018-01-09 23:04 | EDPHY ---
H & P Stated Complaint: ABCESS ON BACK OF ARM BIGGER,SKIN ON FEET INFECTED Time Seen by Provider: 01/09/18 23:04 HPI/ROS: CHIEF COMPLAINT: Multiple complaints see HPI HISTORY OF PRESENT ILLNESS: 37-year-old homeless male history of methamphetamine abuse walked to the ER with multiple complaints. He states that he does not know where to go, has been wandering the streets, has developed blisters on his feet due to ill-fitting shoes, he does not have tooth brush, he does not have lip balm, he does not have a high quality jacket to keep him warm, he has a lesion on his left triceps been present for several months. He denies: Fever, chills, suicidal ideation, homicidal ideation, chest pain, dyspnea, abdominal pain, hallucination. PRIMARY CARE PROVIDER: [facility] REVIEW OF SYSTEMS: 10 systems reviewed and negative with the exception of the elements mentioned in the history of present illness PAST MEDICAL & SURGICAL HISTORY: polysubstance abuse history SOCIAL HISTORY:Positive for methamphetamine abuse PHYSICAL EXAM (Prior to examination, patient consented to physical exam, hands were washed and my usual and customary physical exam procedures followed) 1) GENERAL: Well-developed, well-nourished, alert and oriented. Appears to be in no acute distress. 2) HEAD: Normocephalic, atraumatic 3) HEENT: Pupils equal, round, reactive to light bilaterally. Sclera anicteric. 4) NECK: Full range of motion, no meningeal signs. 5) LUNGS: Clear auscultation bilaterally, no wheezes, no rhonchi, no retractions. 6) HEART: Regular rate and rhythm, no murmur, no heave, no gallop. 7) ABDOMEN: No guarding, no rebound, no focal tenderness, 8) MUSCULOSKELETAL: Left triceps: Subacute scar with soft tissue swelling which is nontender, freely mobile with no overlying skin changes, no discoloration. No lymphangitic streaking. Bilateral feet are examined, multiple blisters. No signs of infection. No signs of frostbite. No signs of cellulitis. No trench foot. Otherwise, Moving all extremities, no focal areas of tenderness, no obvious trauma. No peripheral edema or discoloration. 9) BACK: No CVA tenderness, no midline vertebral tenderness, no fluctuance, no step-off, no obvious trauma, no visual or palpable abnormality. 10) SKIN: No rash, no petechiae. 11) Psychiatric: Patient is oriented X 3, there is no agitation. DIFFERENTIAL DIAGNOSIS: In no particular order including but not limited to blisters, frostbite to feet, cellulitis, malingering - Personal History Current Tetanus/Diphtheria Vaccine: Unsure - Medical/Surgical History Hx Asthma: No Hx Chronic Respiratory Disease: No Hx Diabetes: No Hx Cardiac Disease: No Hx Renal Disease: No Hx Cirrhosis: No Hx Alcoholism: Yes Hx HIV/AIDS: No Hx Splenectomy or Spleen Trauma: No Other PMH: Meth & bath salt use,ETOH , ?PSYCH ISSUES - Social History Smoking Status: Current every day smoker Constitutional: Initial Vital Signs Temperature (C) 36.6 C 01/09/18 23:26 Heart Rate 108 H 01/09/18 23:26 Respiratory Rate 18 01/09/18 23:26 Blood Pressure 129/93 H 01/09/18 23:26 O2 Sat (%) 97 01/09/18 23:26 O2 Delivery Mode Room Air Allergies/Adverse Reactions: No Known Allergies Allergy (Verified 01/09/18 22:58) Home Medications: Medication Instructions Recorded NK [No Known Home Meds] 12/28/17 Medical Decision Making ED Course/Re-evaluation: 11:30 p.m.: I empathized with the patient's life situation. At this point I do not identify emergent condition requiring intervention or diagnostic studies. Regarding his toes he does have irritation and blisters. He also requests new socks, toothbrush, toothpaste, lip palm which have been provided to him. He is noted to have a subacute left tricep lesion which he states has been present for several months. This does not appear to be infected, there are no overlying skin changes. This is not appear to be consistent with an abscess. No indication for incision and drainage or aspiration at this time.. He specifically denies suicidal or homicidal ideation. I have recommend he follow up with primary care provider at the [facility]. I saw this patient independently based on established practice protocols. Care of patient under supervision of secondary supervising physician Dr Bigg Ruiz. Departure - Departure Disposition: Home, Routine, Self-Care Clinical Impression: Blisters of multiple sites, Methamphetamine abuse Condition: Good Instructions: Blister (ED) Additional Instructions: I [facility] you [facility] Referrals: [facility],. [Clinic] - As per Instructions
[2018-01-09 23:27] VITALS: BP 129/93
== END 2018-01-09 23:43 | disposition home or self-care (01) ==
DX: S90.424A Blister (nonthermal), right lesser toe(s), initial encounter (principal); S90.425A Blister (nonthermal), left lesser toe(s), initial encounter; W49.09XA Other specified item causing external constriction, initial encounter; Z59.0 Homelessness; F15.10 Other stimulant abuse, uncomplicated; Z72.0 Tobacco use

== ENCOUNTER 2018-02-05 11:17 | Emergency (ER) | payer MEDICAID, OTHER ==
--- NOTE | 2018-02-05 12:00 | EDPHY ---
H & P Time Seen by Provider: 02/05/18 12:00 HPI/ROS: Chief complaint. Leg injury HPI. 37-year-old male presents emergency department with complaint of right urbano pain. He hit his right lower extremity on a metal bar last night. He has been walking a lot and feels both legs are sprained. No unusual swelling. Left 4th toe has swelling and redness. His left eye is little bit red. No fever. Somewhat shaky and mild headache. No chest pain or shortness of breath. No abdominal pain ROS 10 systems were reviewed and negative with the exception of the elements mentioned in the history of present illness Past Medical/Surgical History: Alcoholism, meth and bath salt use, psychiatric problems Social History: Single, daily smoker, no alcohol Smoking Status: Current every day smoker Physical Exam: General Appearance: Alert well-developed male mild distress vital signs stable Eyes: Left conjunctiva mildly red. No evidence of foreign body. No drainage. ENT, Mouth: Mucous membranes are moist. Respiratory: There are no retractions, lungs are clear to auscultation. Cardiovascular: Regular rate and rhythm. Gastrointestinal: Abdomen is soft and nontender, no masses, bowel sounds normal. Neurological: Awake and alert, sensory and motor exams grossly normal. Skin: Warm and dry, no rashes. Musculoskeletal: Neck is supple nontender. Extremities tenderness mid shaft right tibia. Left 4th toe has some redness and swelling without lymphangitis Psychiatric: Patient is oriented X 3, there is no agitation. Constitutional: Initial Vital Signs Temperature (C) 36.6 C 02/05/18 11:17 Heart Rate 94 02/05/18 11:17 Respiratory Rate 16 02/05/18 11:17 Blood Pressure 130/78 H 02/05/18 11:17 O2 Sat (%) 98 02/05/18 11:17 O2 Delivery Mode Room Air Allergies/Adverse Reactions: No Known Allergies Allergy (Verified 02/05/18 11:29) Home Medications: Medication Instructions Recorded Cephalexin [Keflex (*)] 500 mg PO TID #21 cap 02/05/18 Medical Decision Making - Diagnostics Imaging Results: Imaging Impressions Tibia/Fibula X-Ray 02/05/18 11:29 Impression: There is no acute osseous abnormality identified. X-ray right tibia and fibula including the knee and the ankle are interpreted by me is negative for fracture or foreign body ED Course/Re-evaluation: Re-evaluation at 12:45 p.m.. Patient and I discussed imaging studies. We discussed treatment plan for infection of his toes. We discussed criteria for return importance of follow-up and further evaluation. He expresses understanding and agreement Differential Diagnosis: I considered fracture, dislocation. He has no posterior calf or thigh tenderness suggestive of DVT. There is no obvious swelling either wrist to suggest DVT. He gives a history of trauma of striking his leg on a metal object. - Data Points Medications Given: Discontinued Medications Ibuprofen (Motrin) 800 mg PO EDNOW ONE Stop: 02/05/18 12:08 Last Admin: 02/05/18 12:15 Dose: 800 mg Lorazepam (Ativan) 1 mg PO EDNOW ONE Stop: 02/05/18 12:08 Last Admin: 02/05/18 12:16 Dose: 1 mg Departure - Departure Disposition: Home, Routine, Self-Care Clinical Impression: Contusion of leg, right Qualifiers: Encounter type: initial encounter Qualified Code(s): S80.11XA - Contusion of right lower leg, initial encounter Cellulitis Qualifiers: Site of cellulitis: extremity Site of cellulitis of extremity: toe Laterality: left Qualified Code(s): L03.032 - Cellulitis of left toe Condition: Good Instructions: Cellulitis (ED) Additional Instructions: Keep feet clean and dry. Cephalexin as antibiotic for infection in your toes and eye Return for worsening symptoms. Recheck at [facility] in 2-3 days without fail Referrals: NONE *PRIMARY CARE P,. [Primary Care Provider] - As per Instructions [facility] [Outside] - 2-3 days without fail Prescriptions: Cephalexin [Keflex (*)] 500 mg PO TID #21 cap
[2018-02-05] MEDS ORDERED: LORazepam 1 MG TAB PO ONE (12:07)
[2018-02-05] MEDS ORDERED: IBUPROFEN 800 MG TAB PO ONE (12:07)
[2018-02-05 13:11] VITALS: BP 129/68
--- NOTE | 2018-02-05 13:51 | ASMTCMCOM ---
CM Note CM Note Notes: Patient is a frequent utilizer of the ER and well know by CM. He tells me that he was recently released from [facility] and is currently on probation. Patient denies following up al [facility] or [facility], despite ongoing encouragement. He confirms that he is aware of the "walk in hours" at both clinics, and states that he will follow up. "I need to get my TB test for the group home". I have provided patient with a bus pass to get to the [facility] pharmacy to fill a prescription for Keflex before going to the group home, and have provided him with shoes and socks. I have stressed the importance of getting to [facility] for follow up care and to be sure to take ALL of his Keflex as prescribed Date Signed: 02/05/2018 01:41 PM Electronically Signed By:Anabelle Clark RN
== END 2018-02-05 13:31 | disposition home or self-care (01) ==
LOC: EDUNIT#
DX: S80.11XA Contusion of right lower leg, initial encounter (principal); L03.032 Cellulitis of left toe

== ENCOUNTER 2018-02-07 04:05 | Emergency (ER) | payer MEDICAID ==
[2018-02-07 04:14] VITALS: BP 138/84
--- NOTE | 2018-02-07 04:28 | EDPHY ---
H & P Stated Complaint: left leg pain Time Seen by Provider: 02/07/18 04:11 HPI/ROS: Chief Complaint: Knee pain HPI: 29-year-old homeless male presenting complaining of right knee pain. Patient was seen here 2 days ago him playing of a lesion on his right leg. X- rays at that time were unremarkable. Patient was noted to have a possible infection in his toes is referred to the [facility]. He says he went to the [facility] but would not be seen because he did not have V2 dollars a required. Patient has been using meth. Last used about 14 hr ago. 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 Denies any recent falls. States he has been walking a lot. No numbness or weakness. He is currently homeless. No fevers or chills. No cough. ROS: 10 systems were reviewed and were negative except those elements noted in the HPI. PMH: Methamphetamine abuse Social History: Positive smoking, positive alcohol, positive methamphetamine abuse Family History: non-contributory Physical Exam: Gen: Awake, Alert, No Distress HEENT: Nose: no rhinorrhea Eyes: PERRLA, EOMI Mouth: Moist mucosa Neck: Supple, no JVD Chest: nontender, lungs clear to auscultation Ext: Right knee: Not swollen, no bony tenderness. Full flexion past 90. No anterior drawer sign. He has some mild tenderness in the lateral collateral ligament with straining of the ligament. No instability. Lower legs are normal on inspection. Toes: Patient has some mild erythema of his left great toe and 3rd toe. There is normal perfusion. States symptoms are consistent with tinea. He has significant toenail changes consistent with fungal infection. They are not warm to the touch. There is no proximal streaking. Right foot is unremarkable. Skin: no rash Neuro: CN II-XII intact, Sensation grossly intact, Strength 5/5 in bilateral upper and lower extremities - Personal History Current Tetanus Diphtheria and Acellular Pertussis (TDAP): Unsure - Medical/Surgical History Hx Asthma: No Hx Chronic Respiratory Disease: No Hx Diabetes: No Hx Cardiac Disease: No Hx Renal Disease: No Hx Cirrhosis: No Hx Alcoholism: Yes Hx HIV/AIDS: No Hx Splenectomy or Spleen Trauma: No Other PMH: Meth & bath salt use,ETOH , ?PSYCH ISSUES - Social History Smoking Status: Former smoker Constitutional: Initial Vital Signs Temperature (C) 36.6 C 02/07/18 04:11 Heart Rate 94 02/07/18 04:11 Respiratory Rate 20 02/07/18 04:11 Blood Pressure 138/84 H 02/07/18 04:11 O2 Sat (%) 98 02/07/18 04:11 O2 Delivery Mode Room Air Allergies/Adverse Reactions: No Known Allergies Allergy (Verified 02/07/18 04:11) Home Medications: Medication Instructions Recorded NK [No Known Home Meds] 02/07/18 Medical Decision Making ED Course/Re-evaluation: 29-year-old male complaining of right knee pain with ambulation. He is atraumatic. He has a very unremarkable knee exam. No bony tenderness. Only has a little bit of tenderness in the lateral collateral ligament straining of the ligament. I do not think x-rays are indicated at this time. Did have x- rays of his leg 2 days ago which were unremarkable. [facility]. Plan will be to discharge to have him follow up as an outpatient Departure - Departure Disposition: Home, Routine, Self-Care Clinical Impression: Knee pain Condition: Good Instructions: Knee Pain (ED) Additional Instructions: Follow up with [facility] in 2-3 days for further evaluation. Referrals: NONE *PRIMARY CARE P,. [Primary Care Provider] - As per Instructions
== END 2018-02-07 04:36 | disposition home or self-care (01) ==
DX: M25.561 Pain in right knee (principal); Z59.0 Homelessness

== ENCOUNTER 2018-02-07 18:53 | Emergency (ER) | payer MEDICAID ==
[2018-02-07 19:03] VITALS: BP 103/77
--- NOTE | 2018-02-07 19:06 | EDPHY ---
H & P Stated Complaint: Per EMS pt w/ ETOH Time Seen by Provider: 02/07/18 18:53 HPI/ROS: Chief complaint: Alcohol intoxication History of present illness: 37-year-old male found outside by a bystanders who called EMS. EMS reports patient appeared intoxicated. He was brought here. He continues to complain of knee pain. He has been seen in this emergency department multiple times for the knee pain. He has no other complaints. He is rather belligerent with me, but denies any other complaints. Review of systems: A 10 point review of systems was obtained and other than described above was negative - Personal History Current Tetanus/Diphtheria Vaccine: Unsure Current Tetanus Diphtheria and Acellular Pertussis (TDAP): Unsure - Medical/Surgical History Hx Asthma: No Hx Chronic Respiratory Disease: No Hx Diabetes: No Hx Cardiac Disease: No Hx Renal Disease: No Hx Cirrhosis: No Hx Alcoholism: Yes Hx HIV/AIDS: No Hx Splenectomy or Spleen Trauma: No Other PMH: Meth & bath salt use,ETOH , ?PSYCH ISSUES - Social History Smoking Status: Former smoker - Physical Exam Exam: General Appearance: Alert and no distress. Eyes: Pupils equal and round no injection. Respiratory: Chest is non tender, lungs are clear to auscultation. Cardiac: regular rate and rhythm Gastrointestinal: Abdomen is soft and non tender, no masses, bowel sounds normal. Musculoskeletal: Neck is supple and non tender. Extremities have full range of motion and are non tender. Skin: No rashes or lesions. Constitutional: Initial Vital Signs Heart Rate 84 02/07/18 19:02 Respiratory Rate 18 02/07/18 19:02 Blood Pressure 103/77 02/07/18 19:02 O2 Sat (%) 99 02/07/18 19:02 O2 Delivery Mode Room Air Allergies/Adverse Reactions: No Known Allergies Allergy (Verified 02/07/18 04:11) Home Medications: Medication Instructions Recorded NK [No Known Home Meds] 02/07/18 Medical Decision Making ED Course/Re-evaluation: Patient seen under the supervision of my secondary supervising physician Dr. Bruce Cornejo. Previous records of patient's multiple visits were also reviewed. Patient presents with EMS after found by bystanders who was concerned for his well being. On my evaluation I am able to have a conversation with the patient. He does complain of continued knee pain. He has been seen multiple times recently for this problem. I do not believe further workup is warranted. He is ambulating well and able to hold conversation. I will discharged him. I have again asked him to follow up with primary care doctor for continued evaluation and care. Departure - Departure Disposition: Home, Routine, Self-Care Clinical Impression: Alcoholic intoxication Qualifiers: Complication of substance-induced condition: uncomplicated Qualified Code(s): F10.920 - Alcohol use, unspecified with intoxication, uncomplicated Condition: Good Instructions: Abuse of Alcohol (ED) Additional Instructions: Follow-up with a primary care doctor for recheck If symptoms worsen or new symptoms develop return to the emergency department for recheck Referrals: NONE *PRIMARY CARE P,. [Primary Care Provider] - As per Instructions [facility],. [Clinic] - As per Instructions
== END 2018-02-07 19:25 | disposition home or self-care (01) ==
LOC: EDUNIT#
DX: F10.129 Alcohol abuse with intoxication, unspecified (principal); M25.561 Pain in right knee; Z59.0 Homelessness